=== PATIENT | male | born 1985 | race Caucasian/White ===

== ENCOUNTER 2019-10-15 00:58 | Outpatient (RCR) | payer SELFPAY | END 2019-10-20 23:59 | disposition home or self-care (01) | LOC: INF 00:58 | PROVIDERS: PCP Nurse Practitioner Family; Visit Provider Family Medicine | DX: D50.9 Iron deficiency anemia, unspecified (principal) | CPT/HCPCS: 96365; J1756 ==

== ENCOUNTER 2021-10-23 16:01 | Emergency (ER) | payer MEDICAID, SELFPAY ==
[2021-10-23 16:06] VITALS: BP 120/76; PULSE 67; RESP 18; TEMP 37; O2SAT 100
--- NOTE | 2021-10-23 16:21 | ED.GENADUL_ITS ---
Discharge Plan Disposition Patient Disposition: HOME Condition: Stable Discharge Details Clinical Impression: Cellulitis Primary Care Provider: Isma Holbrook ED Provider: Carson Witt Home Meds and New Rx's Prescriptions: New cephalexin 500 mg capsule 500 mg PO QID 10 Days Qty: 40 RF: 0 Discharge Instructions Instructions: Cellulitis (ED) Additional Instructions: Cephalexin as directed. Rest, elevate, warm soaks and/or compresses every 2 hours for 20 minutes. [id number] Tylenol and/or Motrin as directed for discomfort. Please watch for new or worsening symptoms and return to the ER for any concerns. Otherwise I recommend following up with your primary care provider in the next 2-3 days for wound reevaluation. If symptoms recur then referral to dermatology may be indicated. Medical Decision Making 36-year-old gentleman, [id number], no history of IV drug use, presents for left arm cellulitis. Clinically he appears well, nontoxic, afebrile, no lymphangitic streaking. No abscess that requires I&D at this time. We discussed conservative measures such as initiating oral antibiotic therapy, providing prescription, elevation, warm compresses and/or soaks, [id number] Tylenol and/or Motrin. We also discussed the importance of outpatient follow-up in the next 2-3 days for wound reevaluation. He was encouraged to return to the ER for new or worsening symptoms. Patient has no additional questions or concerns and is comfortable this plan. This documentation was generated using wumo dictation system, please disregard any oddities of phrase or misspellings. Medical Records Medical records reviewed: Yes I reviewed the patient's medical records. HPI General Mode of arrival: ambulatory . Date/Time Provider Initiated Documentation: 10/23/21 16:06 . Limitations to Documentation: no limitations . Information obtained by: patient . HPI Narrative: Is a 36-year-old male, [id number], denies any significant past medical history, presenting for a left arm infection. Patient states that he occasionally gets these but they typically resolve on their own. This time he states roughly 2 days ago he noticed a pimple that would not pop on his left forearm. Subsequently it did drain some but now surrounding the area is mild discomfort, redness, warmth. He denies any obvious injury. States that he has had a similar small infections in his groin but none active. Denies any other current skin rash, fever, numbness, tingling, weakness. Has not taken any medications for his symptoms. Related Data Home Medications Medication Instructions Recorded Confirmed cephalexin 500 mg PO QID 10 Days #40 cap 10/23/21 Previous Rx's Medication Instructions Recorded cephalexin 500 mg PO QID 10 Days #40 cap 10/23/21 Allergies Allergy/AdvReac Type Severity Reaction Status Date / Time No Known Allergies Allergy Unverified 10/23/21 16:08 General Stated Complaint: Cellulitis [place]: 4 Review of Systems Constitutional Constitutional: Denies fever(s) Musculoskeletal Musculoskeletal: Denies arthralgias, Denies numbness and Denies tingling Integumentary/Breasts Skin/Breast: Reports erythema Neurologic Neurologic: Denies numbness and Denies tingling PFSH All Active Problems (Updated 10/23/21 @ 16:21 by ZACH Cheng) Rectal foreign body (Acute) a. Carrot. Cellulitis (Acute) Social History Smoking/Tobacco Use Status: Never Smoking risk assessment performed?: Yes Alcohol Intake: current Alcohol Intake frequency: holidays/special occasions only Drug use: Never Substance use type: does not use Do you feel safe at home: Yes Do you feel safe in your relationship?: Yes Exam Const General: cooperative, healthy appearing, comfortable and no acute distress Orientation: alert and awake [facility] Head: normal to inspection, normocephalic and atraumatic Eyes General: appearance normal, both eyes and all related structures Conjunctivae: conjunctivae normal Neck Neck: normal visual inspection, trachea midline and supple Resp Effort & Inspection: normal respiratory effort and able to speak in complete sentences Cardio Rate: regular rate Rhythm: regular rhythm Skin General skin exam: erythema Neuro General: patient alert, patient awake, moves all extremities and no focal motor deficits Cognition: normal cognition Speech: speech normal Sensory Exam: no sensory deficits noted Extrem General: full ROM and capillary refill normal Elbow/forearm/wrist images: 1. Left forearm, no circumferential erythema, warmth, minimal tenderness. There is no lymphangitic streaking. Normal radial pulse, capillary refill. Full range of motion, neuro, vascular, tendon intact. Centrally there is an area of minimal induration but no drainage or fluctuance. No pointing abscess. Psych Appearance: grossly normal Mental Status: mental status grossly normal Course Vital Signs Vital signs: Vital Signs Temperature 37.0 C 10/23/21 16:06 Pulse 67 10/23/21 16:06 Respiratory Rate 18 10/23/21 16:06 Blood Pressure 120/76 10/23/21 16:06 Pulse Oximetry 100 10/23/21 16:06 Temperature 37.0 C 10/23/21 16:06 Pulse 67 10/23/21 16:06 Respiratory Rate 18 10/23/21 16:06 Respiratory Effort Non-Labored 10/23/21 16:08 Blood Pressure 120/76 10/23/21 16:06 Pulse Oximetry 100 10/23/21 16:06 Oxygen Delivery Method Room Air 10/23/21 16:06 Oxygen Flow Rate 0 10/23/21 16:06 Pain Level 2 10/23/21 16:06
[2021-10-23 16:26] VITALS: BP 120/76; PULSE 67; RESP 18; TEMP 37; O2SAT 100
[2021-10-23] MEDS: Cephalexin 500 MG CAP PO (16:26)
== END 2021-10-23 16:26 | disposition home or self-care (01) ==
PROVIDERS: Emergency Provider Physician Assistant; PCP Nurse Practitioner Family
DX: L03.114 Cellulitis of left upper limb (principal)
CPT/HCPCS: 99283